=== PATIENT | male | born 1970 | race Caucasian/White ===

== ENCOUNTER 2024-04-18 13:28 | Inpatient (IN) ==
--- NOTE | 2024-04-18 14:43 | Emergency Department Note ---
History of Present Illness General Chief complaint: Hip Pain Stated complaint: L HIP PAIN Time Seen by Provider: 04/18/24 14:23 History of Present Illness Maximum Pain Intensity: 10 This is a 54-year-old male that presents to the emergency department via private vehicle with complaints of "left hip pain". The patient points to the area on the back to superior to the left ASIS as a location of discomfort. Patient notes that for the past month or so he has had some discomfort in that area but has been overall mild. He notes that a few days ago the pain significantly worsened and then yesterday started on oral muscle relaxers. He notes that the pain continues. He notes nausea from the pain. Current pain 100/10. The patient denies any trauma or injury. No fevers, chills or vomiting. No dysuria. Patient does note movements at times are worse with certain positions but walking is actually a bit helpful at least initially but then the pain worsens. The pain does not radiate into the abdomen or down the legs. Patient denies any lower extremity weakness, bowel or bladder incontinence, numbness or tingling in genital region. Patient denies any drug use. No smoking. Minimal alcohol use. Home Medications Medication Instructions Recorded Confirmed Type No Known Home Medications 04/01/24 04/01/24 History Allergies Allergy/AdvReac Type Severity Reaction Status Date / Time No Known Allergies Allergy Unknown Verified 02/13/24 15:28 Past Med/Surg History Problem List (Updated 04/18/24 @ 16:54 by Tip Jaime PA-C) Left low back pain (Acute) Encounter for pre-operative examination Medical History Radiolucent area in mandible Gum inflammation Impacted teeth with abnormal position History of COVID-19 2021 Sciatica History of sleep apnea no device Acid reflux diet controlled Surgical History Hx of oral surgery (02/05/24) p Excision Impacted Tooth #17, - Vance Jefferson DMD s Debridement of Infected Cyst/Soft Tissue - s Radiolucent Area in Mandible Associated with expansion #17 area Vance Jefferson DMD History of colonoscopy History of open reduction and internal fixation (ORIF) procedure BL KALI (subsequent right femur shaheen removal year later) History of tonsillectomy Family History Other No family history of adverse response to anesthesia Social History Smoking Status: Never smoker Second Hand Exposure: No; Do You Dip or Chew Tobacco: No; Hx Alcohol Use: Yes Alcohol type: beer, wine and hard liquor Hx Substance Use: No Preferred Language: Mosotho Communication Ability: Effective Library Aide Required: No Beliefs That Will Affect Care: None marital status: Current Living Situation: Spouse current occupational status: employed 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 How many Children do You have: 2 Feels Safe at Home: Yes during the past year weight has: remained stable Assistive Devices: Glasses Review of Systems A total of 10 systems reviewed and were otherwise negative Physical Exam Vital Signs Vital Signs - 24 hr 04/18/24 13:28 04/18/24 13:28 04/18/24 15:19 Temperature 36.6 C Temperature Source Temporal Artery Scan Pulse Rate 71 Pulse Rate [Right Finger] 62 Respiratory Rate 18 20 Respiratory Effort / Characteristics Non-Labored Spontaneous Respiratory Depth Normal Respiratory Pattern Regular Blood Pressure 151/98 H Blood Pressure [Right Arm] 147/83 H Blood Pressure Mean 115 Blood Pressure Mean [Right Arm] 104 Pulse Oximetry 99 98 98 Oxygen Delivery Method Room Air Sepsis Recent Fever Within 48 Hours No Sepsis New/Unexplained Change in Mental Status N/A Sepsis Action Taken by Nursing No Action Required 04/18/24 16:00 04/18/24 16:01 04/18/24 16:05 Temperature Temperature Source Pulse Rate 56 L 63 Pulse Rate [Right Finger] 56 L Respiratory Rate 16 16 Respiratory Effort / Characteristics Non-Labored Spontaneous Respiratory Depth Normal Respiratory Pattern Regular Blood Pressure Blood Pressure [Right Arm] 166/93 H Blood Pressure Mean Blood Pressure Mean [Right Arm] 117 Pulse Oximetry 97 96 Oxygen Delivery Method Room Air Room Air Sepsis Recent Fever Within 48 Hours Sepsis New/Unexplained Change in Mental Status Sepsis Action Taken by Nursing 04/18/24 16:32 04/18/24 16:42 Temperature Temperature Source Pulse Rate Pulse Rate [Right Finger] 68 58 L Respiratory Rate 10 L 20 Respiratory Effort / Characteristics Non-Labored Spontaneous Non-Labored Spontaneous Respiratory Depth Normal Normal Respiratory Pattern Regular Regular Blood Pressure Blood Pressure [Right Arm] 138/90 Blood Pressure Mean Blood Pressure Mean [Right Arm] 106 Pulse Oximetry 97 98 Oxygen Delivery Method Room Air Room Air Sepsis Recent Fever Within 48 Hours Sepsis New/Unexplained Change in Mental Status Sepsis Action Taken by Nursing VITAL SIGNS - Vital signs and nursing notes were reviewed. Stable and afebrile. GENERAL -54-year-old male appearing his stated age who is in no acute distress but appears to be in pain and is in a prone position on the exam bed. Communicates well with provider and answers questions appropriately. SKIN - Without rashes. No meningeal or petechial rash. The skin overlying the low back is unremarkable. No erythema or edema. No herpetic lesions. HEAD - NC/AT. EYES - Sclera anicteric. MOUTH/OROPHARYNX - Without perioral cyanosis. NECK - Neck with FROM. No nuchal rigidity. LUNGS - CTA CARDIAC - RRR ABDOMEN - Abdominal contour normal without pulsations or visible masses. BS normoactive all four quadrants. No tenderness, palpable masses, hepatosplenomegaly, or ascites noted. EXTREMITIES - No clubbing or peripheral cyanosis. +5/5 strength noted in UE/LE bilaterally. Patellar reflexes within normal limits bilaterally. Patient able to straight leg raise against resistance bilaterally. NEUROLOGIC - Cranial nerves II through XII grossly intact. PSYCH -alert, oriented and pleasant on exam. Pt is very pleasant and interacts well with examiner. Course Administered Medications Sodium Chloride (Nss) 1,000 mls @ 999 mls/hr IV .Q1H1M ONE Stop: 04/18/24 17:11 Last Admin: 04/18/24 16:30 Dose: 999 mls/hr Documented By: TOÑA Discontinued Medications Hydromorphone HCl (Hydromorphone Inj 0.5 Mg/0.5 Ml Syr) 0.5 mg IV NOW STA Stop: 04/18/24 15:54 Last Admin: 04/18/24 16:04 Dose: 0.5 mg Documented By: TOÑA Ketorolac Tromethamine (Ketorolac Tromethamine 15 Mg/Ml Vial) 10 mg IV NOW ONE Stop: 04/18/24 14:45 Last Admin: 04/18/24 15:14 Dose: 10 mg Documented By: TOÑA Ondansetron HCl (Ondansetron Inj 2 Mg/Ml 2 Ml Vial) 4 mg IV NOW STA Stop: 04/18/24 15:54 Last Admin: 04/18/24 16:03 Dose: 4 mg Documented By: TOÑA Medical Decision Making Laboratory Data 04/18/24 15:38 04/18/24 15:44 Lab Results 04/18/24 04/18/24 04/18/24 Range/Units 15:00 15:38 15:44 WBC Cancelled 7.99 RBC Cancelled 5.85 Hgb Cancelled 17.5 Hct Cancelled 51.3 MCV Cancelled 87.7 MCH Cancelled 29.9 MCHC Cancelled 34.1 RDW Std Deviation Cancelled 41.7 RDW Coeff of Cee Cancelled 13.0 Plt Count Cancelled 227 MPV Cancelled 10.0 Immature Gran % (Auto) Cancelled 1.4 Neut % (Auto) Cancelled 50.9 Lymph % (Auto) Cancelled 33.4 Rosebud % (Auto) Cancelled 11.5 Eos % (Auto) Cancelled 1.5 Baso % (Auto) Cancelled 1.3 Neut # (Auto) Cancelled 4.07 Lymph # (Auto) Cancelled 2.67 Rosebud # (Auto) Cancelled 0.92 H Eos # (Auto) Cancelled 0.12 Baso # (Auto) Cancelled 0.10 Immature Gran # (Auto) Cancelled 0.11 Absolute Nucleated RBC Cancelled Nucleated RBC % (auto) Cancelled Neutrophils % (Manual) Cancelled Band Neutrophils % Cancelled Lymphocytes % (Manual) Cancelled Prolymphocyte % Cancelled Reactive Lymphs % (Man) Cancelled Monocytes % (Manual) Cancelled Eosinophils % (Manual) Cancelled Basophils % (Manual) Cancelled Metamyelocytes % (Man) Cancelled Myelocytes % (Man) Cancelled Promyelocytes % (Man) Cancelled Blast Cells % (Manual) Cancelled Plasma Cell % (Manual) Cancelled Other Cells % Cancelled Nucleated RBC % Cancelled Neutrophils # (Manual) Cancelled Band Neutrophils # Cancelled Total Absolute Neuts Cancelled Lymphocytes # (Manual) Cancelled Prolymphocyte # Cancelled Reactive Lymphs # Cancelled Total Abs Lymphocytes Cancelled Monocytes # (Manual) Cancelled Eosinophils # (Manual) Cancelled Basophils # (Manual) Cancelled Metamyelocytes # (Man) Cancelled Myelocytes # (Manual) Cancelled Promyelocytes # (Man) Cancelled Blast Cells # (Man) Cancelled Plasma Cell # (Manual) Cancelled Other Cells # Cancelled Nucleated RBCs # (Man) Cancelled Hypersegmented Neuts Cancelled Hyposegmented Neuts Cancelled Hypogranular Neuts Cancelled Large Granular Lymphs Cancelled # Lrg Granular Lymphs Cancelled Hairy Cells Cancelled Smudge Cells Cancelled Toxic Granulation Cancelled Toxic Vacuolation Cancelled Dohle Bodies Cancelled Juve Rods Cancelled Platelet Estimate Cancelled Hypogranular Platelets Cancelled Giant Platelets Cancelled Platelet Satelliting Cancelled RBC Morphology Cancelled Polychromasia Cancelled Hypochromasia Cancelled Poikilocytosis Cancelled Basophilic Stippling Cancelled Anisocytosis Cancelled Microcytosis Cancelled Macrocytosis Cancelled Spherocytes Cancelled Pappenheimer Bodies Cancelled Sickle Cells Cancelled Target Cells Cancelled Tear Drop Cells Cancelled Ovalocytes Cancelled Stomatocytes Cancelled Jasmine-Elysian Bodies Cancelled Echinocytes Cancelled Acanthocytes (Spur) Cancelled Rouleaux Cancelled RBC Agglutinates Cancelled Schistocytes Cancelled Sezary Cell Cancelled Sodium Cancelled 143 Potassium Cancelled 3.9 Chloride Cancelled 107 Carbon Dioxide Cancelled 30 Anion Gap Cancelled 6 BUN Cancelled 16 Creatinine Cancelled 0.84 Est Cr Clr Drug Dosing Cancelled 109.2 eGFR Cancelled 102.99 BUN/Creatinine Ratio Cancelled 19.0 Glucose Cancelled 93 Calcium Cancelled 9.1 Total Bilirubin Cancelled 0.8 AST Cancelled 13 ALT Cancelled 16 Alkaline Phosphatase Cancelled 60 Total Protein Cancelled 6.4 Albumin Cancelled 3.8 Globulin Cancelled 2.6 Albumin/Globulin Ratio Cancelled 1.5 Urine Color Urine Appearance (Clear) Urine pH (4.5-7.5) Ur Specific [place] (1.000-1.030) Urine Protein (Negative) Urine Glucose (UA) (Negative) Urine Ketones (Negative) Urine Blood (Negative) Urine Nitrite (Negative) Urine Bilirubin (Negative) Urine Urobilinogen (Negative) Ur Leukocyte Esterase (Negative) Blood Parasites ID Cancelled 04/18/24 Range/Units 15:50 WBC RBC Hgb Hct MCV MCH MCHC RDW Std Deviation RDW Coeff of Cee Plt Count MPV Immature Gran % (Auto) Neut % (Auto) Lymph % (Auto) Rosebud % (Auto) Eos % (Auto) Baso % (Auto) Neut # (Auto) Lymph # (Auto) Rosebud # (Auto) Eos # (Auto) Baso # (Auto) Immature Gran # (Auto) Absolute Nucleated RBC Nucleated RBC % (auto) Neutrophils % (Manual) Band Neutrophils % Lymphocytes % (Manual) Prolymphocyte % Reactive Lymphs % (Man) Monocytes % (Manual) Eosinophils % (Manual) Basophils % (Manual) Metamyelocytes % (Man) Myelocytes % (Man) Promyelocytes % (Man) Blast Cells % (Manual) Plasma Cell % (Manual) Other Cells % Nucleated RBC % Neutrophils # (Manual) Band Neutrophils # Total Absolute Neuts Lymphocytes # (Manual) Prolymphocyte # Reactive Lymphs # Total Abs Lymphocytes Monocytes # (Manual) Eosinophils # (Manual) Basophils # (Manual) Metamyelocytes # (Man) Myelocytes # (Manual) Promyelocytes # (Man) Blast Cells # (Man) Plasma Cell # (Manual) Other Cells # Nucleated RBCs # (Man) Hypersegmented Neuts Hyposegmented Neuts Hypogranular Neuts Large Granular Lymphs # Lrg Granular Lymphs Hairy Cells Smudge Cells Toxic Granulation Toxic Vacuolation Dohle Bodies Juve Rods Platelet Estimate Hypogranular Platelets Giant Platelets Platelet Satelliting RBC Morphology Polychromasia Hypochromasia Poikilocytosis Basophilic Stippling Anisocytosis Microcytosis Macrocytosis Spherocytes Pappenheimer Bodies Sickle Cells Target Cells Tear Drop Cells Ovalocytes Stomatocytes Jasmine-Elysian Bodies Echinocytes Acanthocytes (Spur) Rouleaux RBC Agglutinates Schistocytes Sezary Cell Sodium Potassium Chloride Carbon Dioxide Anion Gap BUN Creatinine Est Cr Clr Drug Dosing eGFR BUN/Creatinine Ratio Glucose Calcium Total Bilirubin AST ALT Alkaline Phosphatase Total Protein Albumin Globulin Albumin/Globulin Ratio Urine Color Yellow Urine Appearance Clear (Clear) Urine pH 6.5 (4.5-7.5) Ur Specific [place] 1.019 (1.000-1.030) Urine Protein Negative (Negative) Urine Glucose (UA) Negative (Negative) Urine Ketones Negative (Negative) Urine Blood Negative (Negative) Urine Nitrite Negative (Negative) Urine Bilirubin Negative (Negative) Urine Urobilinogen Negative (Negative) Ur Leukocyte Esterase Negative (Negative) Blood Parasites ID MDM Narrative Patient was seen and evaluated as above in room D04a. Review was performed of triage nursing notes and vital signs. After obtaining a thorough history and physical examination the above work up was performed. Patient presents to us today for assessment of left low back pain. No trauma. No injury. It does not radiate down the legs. Patient appears to be in significant pain at this time rating current pain as 100/10. No evidence of cauda equina syndrome by history or examination. Labs reveal no leukocytosis or concerning anemia. No emergent metabolic disturbance. Urinalysis negative. Patient medicated here with IV Toradol, IV Dilaudid, IV Zofran. Patient also appears dehydrated and IV fluids also administered. CT scan abdomen pelvis plus L-spine recon was ordered. Patient case signed out to BUZZ Naik pending imaging. Patient noted current pain 1/10 following IV analgesia. Please refer to further documentation regarding his stay. While in the department, I personally reevaluated the patient several times and each time the patient was found to be resting comfortably. The patient was educated upon management, educated upon todays findings/results, educated upon importance of follow up from today's visit, educated upon symptoms in which to return, had questions answered prior to discharge, verbalized understanding, and was discharged home in good condition. GCS: 15 In the evaluation and treatment of this patient the following differential diagnoses were entertained: Fracture, dislocation, subluxation, contusion, sprain, strain, retroperitoneal bleed, kidney stone, UTI, bowel obstruction, diverticulitis, among others. Impression & Plan Left low back pain Discharge Plan Visit Data Chief Complaint: Hip Pain Stated Complaint: L HIP PAIN ED Provider: Jesus Tolliver ED Midlevel Provider: Tenisha Romero Discharge Problem: Left low back pain Patient Disposition: Still a Patient Condition: Good Forms Stand Alone Forms: My [facility] Prescriptions Prescriptions: No Action No Known Home Medications Referrals Referrals: Lew Logan [Primary Care Provider] -
[2024-04-18] MEDS: KETOROLAC TROMETHAMINE 15 MG/ML VIAL IV ONE (15:14)
[2024-04-18 16:03] LABS: Appearance Urine Clear (Clear); Bilirubin Urine Negative (Negative); Blood Urine Negative (Negative); Color Urine Yellow; Glucose Urine UA Negative (Negative); Ketones Urine Negative (Negative); Leukocyte Esterase Urine Negative (Negative); Nitrite Urine Negative (Negative); Protein Urine Negative (Negative); Specific Gravity Urine 1.019 (1.000-1.030); Urobilinogen Urine Negative (Negative); pH Urine 6.5 (4.5-7.5)
[2024-04-18] MEDS: ONDANSETRON INJ 2 MG/ML 2 ML VIAL IV STA (16:03)
[2024-04-18] MEDS: HYDROmorphone INJ 0.5 MG/0.5 ML SYR IV STA ×3 (16:04→19:11)
[2024-04-18 16:19] LABS: Basophils % (auto) 1.3 %; Eosinophils # (auto) 0.12 K/uL (0.00-0.50); Eosinophils % (auto) 1.5 %; Hematocrit (blood only) 51.3 % (42.0-52.0); Hemoglobin 17.5 g/dl (14.0-18.0); Immature Granulocytes # (auto) 0.11 K/uL (0.01-0.20); Immature Granulocytes % (auto) 1.4 %; Lymphocytes # (auto) 2.67 K/uL (1.20-3.40); Lymphocytes % (auto) 33.4 %; Mean Corpuscular Hemoglobin 29.9 pg (25.0-34.0); Mean Corpuscular Hgb Conc 34.1 g/dL (32.0-36.0); Mean Corpuscular Volume 87.7 fL (80.0-100.0); Monocytes # (auto) 0.92 K/uL (0.11-0.59); Monocytes % (auto) 11.5 %; Neutrophils # (auto) 4.07 K/uL (1.40-6.50); Neutrophils % (auto) 50.9 %; Platelet Count 227 K/uL (130-400); RDW Standard Deviation 41.7 fL (36.4-46.3); Red Blood Count 5.85 M/uL (4.70-6.10); White Blood Count 7.99 K/ul (4.8-10.8)
[2024-04-18] MEDS: SODIUM CHLORIDE 0.9% 1,000 ML IV ONE (16:30)
[2024-04-18 16:38] LABS: Albumin Globulin Ratio 1.5 (0.9-2); Albumin Level 3.8 gm/dl (3.4-5.0); Bilirubin,Total 0.8 mg/dl (0.2-1.0); Calcium 9.1 mg/dl (8.6-10.3); Creatinine Clr Calc Pharmacy 109.2 ml/min; Globulin 2.6 gm/dl (2.5-4.0); Potassium 3.9 mmol/L (3.5-5.1); Total Protein 6.4 gm/dl (6.0-8.3)
[2024-04-18] MEDS: OPTIRAY 320 100ml IV ONE (17:14)
--- NOTE | 2024-04-18 17:31 | CT Scan Report ---
EXAM: CT Abdomen and Pelvis With Intravenous Contrast INDICATION: Low back and flank pain. TECHNIQUE: Axial computed tomography images of the abdomen and pelvis with intravenous contrast. Sagittal and coronal reformatted images were created and reviewed. This CT exam was performed using one or more of the following dose reduction techniques: automated exposure control, adjustment of the mA and/or kV according to patient size, and/or use of iterative reconstruction technique. CONTRAST: 93ml of Optiray 320 was administered intravenously. COMPARISON: No relevant prior studies available. FINDINGS: Limitations: None. Lung bases: No abnormality noted. Pleural space: No visualized pleural effusion or pneumothorax. Heart: Mild cardiomegaly. No basilar pericardial effusion. Mediastinum: No abnormality noted. ABDOMEN: Liver: No abnormality noted. Gallbladder and bile ducts: No calcified stones or surrounding fluid. Pancreas: Homogeneous enhancement. No mass, inflammation or ductal dilation. Spleen: No significant abnormality noted. Adrenals: 1.8 x 1.3 x 0.9 cm low-density right adrenal nodule. Density measurements slightly greater than expected for adenoma. There is a 5 mm round hypodense nodule in the lateral limb of the left adrenal gland. It is too small to characterize likely benign. Kidneys and ureters: Tiny hypodensity in the lower pole of the left kidney too small to characterize likely cyst. Appearance benign. No further assessment required. The kidneys otherwise appear normal. No stones or hydronephrosis. Stomach and bowel: Scattered left colonic diverticula noted. No diverticulitis. No intestinal obstruction. No segmental thickening. PELVIS: Appendix: Well seen and appears normal. Bladder: No filling defects to suggest mass or large stone. No inflammation. Reproductive: No abnormalities noted. ABDOMEN and PELVIS: Intraperitoneal space: No free air. No significant fluid collection. Bones/joints: Degenerative changes noted throughout the spine. No acute osseous abnormality seen. Degenerative changes present in the spine. No acute osseous abnormality. Soft tissues: There is a right paramedian supraumbilical fat-containing hernia with a 7 mm neck. Vasculature: Mild atherosclerotic plaque in the aorta and iliac arteries. No aneurysm or dissection. Lymph nodes: No pathologically enlarged lymph nodes. IMPRESSION: 1. No acute abnormality in the abdomen or pelvis. 2. Indeterminant right adrenal nodule measures up to 1.8 cm. 5 mm left adrenal low-density nodule likely adenoma. In the absence of the prior study to document stability, ACR White Paper guidelines (Evangelina et al. JACR 2017; 14(8):3093-9833) suggest the following. If there is no history of malignancy consider a follow-up low dose, non-contrast adrenal CT or chemical-shift adrenal MRI in 12 months. If there is a history of malignancy recommend a low dose, non-emergent, non-contrast adrenal CT or chemical-shift adrenal MRI follow-up study. 3. Degenerative lumbar disc disease. See separately dictated CT lumbar spine report from the same day. ACT 112: Negative or not required by law. Electronically signed by Claire Cedeño 04-18-2024 5:31 PM
--- NOTE | 2024-04-18 17:37 | CT Scan Report ---
EXAM: CT Lumbar Spine With Intravenous Contrast INDICATION: Low back and flank pain. TECHNIQUE: Axial computed tomography images of the lumbar spine with intravenous contrast. Sagittal and coronal reformatted images were created and reviewed. This CT exam was performed using one or more of the following dose reduction techniques: automated exposure control, adjustment of the mA and/or kV according to patient size, and/or use of iterative reconstruction technique. CONTRAST: 93ml of Optiray 320 was administered intravenously. COMPARISON: 01/21/2022 FINDINGS: Limitations: None. Vertebrae: Mild diffuse facet arthrosis and spondylosis is stable. There is disc space narrowing L1-L2 with no change asymmetric left osteophyte disc complex and mild canal stenosis. There is narrowing of the left foraminal orifice at this level. There is increased diffuse moderate disc bulge and stable mild canal stenosis at L2-L3. Stable asymmetric right lateral disc bulging at L3-L4 abutting the exiting right L4 nerve root. Stable diffuse disc bulge with moderate to severe canal stenosis at L4-L5 with subarticular nerve root impingement bilaterally. Sacrum/coccyx: No significant abnormality noted. No acute change noted. Discs/spinal canal/neural foramina: Worsening far lateral right disc bulge and interval ossification L5-S1 with severe right foraminal stenosis. Soft tissues: No significant abnormality noted. Adrenals: Bilateral adrenal nodules. IMPRESSION: 1. No acute osseous abnormality. 2. Worsening right lateral L5-S1 disc herniation and right foraminal stenosis compared to 2021. 3. Increased diffuse disc bulge with mild canal stenosis L2-L3 compared to 2021. 4. Bilateral adrenal nodules. See separately dictated CT abdomen pelvic report from the same day. ACT 112: Negative or not required by law. Electronically signed by Claire Cedeño 04-18-2024 5:36 PM
--- NOTE | 2024-04-18 18:42 | Emergency Department Note ---
ED Visit Note The patient was signed out to me at change of shift from Tip Coffman PA-C, pending CT imaging of the abdomen and pelvis as well as the lumbar spine. CT imaging of the abdomen and pelvis does show bilateral adrenal nodules, indeterminate which will require further workup to rule out malignancy. Lumbar spine shows worsening right lateral L5-S1 disc herniation and right foraminal stenosis compared to 2022. There is also increased diffuse disc bulge with mild canal stenosis L2-L3 compared to 2022. I spoke with the patient and his at bedside regarding findings. They were agreeable to admission. I spoke with Dr. Sanchez regarding the patient's results, he agreed to consult during the patient's hospital admission for pain control and ambulatory dysfunction. The patient will require MRI imaging that will be obtained during his hospital admission of the lumbar spine. I spoke with Dr. Ferro, from the [facility] hospitalist group. We discussed the findings of the nodules on the adrenal glands, as well as the findings of the lumbar spine CT. He agreed to accept the patient for admission, with Dr. Sanchez's consult. Please refer to Dr. Ferro and Dr. Sanchez's documentation for further patient workup and care. .
--- NOTE | 2024-04-18 19:16 | History & Physical Report ---
Date of Service April 18, 2024 Assessment & Plan (1) Herniation of intervertebral disc between L5 and S1: (2) Neural foraminal stenosis of lumbosacral spine: (3) Adrenal nodule: Plan Patient with intractable left sided lumbar/hip pain most likely due to foraminal stenosis of the L5-S1 herniated disc. Patient requires hospital level care for pain control and specialty consultation and additional imaging. Care for in the MedSurg unit. Scheduled Tylenol, Flexeril, Neurontin for pain control As needed oxycodone and IV Dilaudid for pain control MRI of the lumbar spine Orthospine consultation, Dr. Sanchez Will hold on any additional steroids at this time. Patient did not seem to find relief with steroid bort burst as an outpatient, his orthopedic spine surgery and told him to discontinue the steroids that he had been on. Therapy consultation Patient will need outpatient follow-up imaging of adrenal nodules, can be followed through his PCP N.p.o. after midnight in case need for surgical intervention tomorrow History of Present Illness Chief Complaint: Severe left hip pain Primary Care Provider: Lew Logan Patient is a 54-year-old gentleman with known bulging disks in the lumbar spine. About 2 weeks ago started noticing increased amount of pain in the left hip. Describes a sharp throbbing intractable pain. Patient is already follows with Dr. Sanchez. Tried a Medrol Dosepak that did not seem to offer him much relief. Patient followed up with his PCP earlier this week and started another burst of steroids. He got no relief with this. Dr. Sanchez trialed him on some Flexeril. Flexeril did not seem to help much at all either. The pain in the hip really exacerbated on . He tried to work on Saturday and the pain just got excruciating to the point where he sought attention in the emergency room today. In the emergency room CT of the lumbar spine shows increased evidence of L5-S1 disc herniation with right foraminal stenosis. These findings were discussed with Dr. Sanchez in the emergency room. It was recommended the patient be admitted for pain control and further imaging and possible surgical intervention. Time of my evaluation the patient's pain had been in had improved with Dilaudid. He reports that his pain is really in the left hip despite findings of more significant stenosis on the right on imaging. Also on imaging of the abdomen in the ED showed some indeterminate right adrenal nodules that based on their size recommend follow-up imaging within the next 12 months. Otherwise the patient denies any real significant medical history. Been eating and drinking okay. Bowels and bladder have been working normally. No chest pain or shortness of breath. No fevers or cough or cold symptoms. Allergies Allergy/AdvReac Type Severity Reaction Status Date / Time No Known Allergies Allergy Unknown Verified 02/13/24 15:28 Home Medications Medication Instructions Recorded Confirmed Type cyclobenzaprine 10 mg tablet 10 mg PO UD 04/18/24 04/18/24 History Past Med/Surg History Problem List (Updated 04/18/24 @ 19:15 by Rober Morelos DO) Adrenal nodule Neural foraminal stenosis of lumbosacral spine Herniation of intervertebral disc between L5 and S1 Left low back pain (Acute) Encounter for pre-operative examination Medical History Radiolucent area in mandible Gum inflammation Impacted teeth with abnormal position History of COVID-19 2021 Sciatica History of sleep apnea no device Acid reflux diet controlled Surgical History Hx of oral surgery (02/05/24) p Excision Impacted Tooth #17, - Vance Jefferson DMD s Debridement of Infected Cyst/Soft Tissue - s Radiolucent Area in Mandible Associated with expansion #17 area Vance Jefferson DMD History of colonoscopy History of open reduction and internal fixation (ORIF) procedure BL LE (subsequent right femur shaheen removal year later) History of tonsillectomy Family History Other No family history of adverse response to anesthesia Social History Smoking Status: Never smoker Second Hand Exposure: No; Do You Dip or Chew Tobacco: No; Hx Alcohol Use: Yes Alcohol type: beer, wine and hard liquor Hx Substance Use: No Preferred Language: Luxembourgish Communication Ability: Effective Heel Seat Sander Required: No Beliefs That Will Affect Care: None marital status: Current Living Situation: Spouse current occupational status: employed 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 Sclera clear Neck: Soft, no adenopathy Lungs: Clear to auscultation, decreased, no wheezes rales or rhonchi CV: S1-S2, regular Abdomen: Soft, nontender, nondistended Extremities: No significant edema Musculoskeletal: Unable to reproduce significant tenderness to palpation along his left hip, some lumbar paravertebral musculature bogginess and tenderness, Neuro: No focal deficits, negative straight leg raising, strength in lower extremity intact, sensation intact Psych: Cooperative, normal mood Results & Data Results & Data Vital Signs (Past 12 Hours) Vital Signs Temp Pulse Pulse Resp BP BP Pulse Ox 04/18/24 18:30 67 12 97 04/18/24 18:24 57 L 8 L 97 04/18/24 18:12 58 L 13 97 04/18/24 18:00 66 13 97 04/18/24 17:42 54 L 8 L 99 04/18/24 17:33 61 6 L 94 04/18/24 17:25 62 20 151/94 H 99 04/18/24 17:23 151/94 H 04/18/24 17:23 151/94 H 04/18/24 16:42 58 L 20 98 04/18/24 16:36 61 23 98 04/18/24 16:32 68 10 L 138/90 97 04/18/24 16:29 138/90 04/18/24 16:18 55 L 9 L 94 04/18/24 16:06 61 14 98 04/18/24 16:05 63 04/18/24 16:01 166/93 H 04/18/24 16:01 56 L 16 166/93 H 96 04/18/24 16:00 56 L 16 97 04/18/24 15:19 62 20 147/83 H 98 04/18/24 13:28 98 04/18/24 13:28 36.6 C 71 18 151/98 H 99 O2 Del Method 04/18/24 18:30 04/18/24 18:24 04/18/24 18:12 04/18/24 18:00 04/18/24 17:42 04/18/24 17:33 04/18/24 17:25 Room Air 04/18/24 17:23 04/18/24 17:23 04/18/24 16:42 Room Air 04/18/24 16:36 04/18/24 16:32 Room Air 04/18/24 16:29 04/18/24 16:18 04/18/24 16:06 04/18/24 16:05 04/18/24 16:01 04/18/24 16:01 Room Air 04/18/24 16:00 Room Air 04/18/24 15:19 Room Air 04/18/24 13:28 04/18/24 13:28 Diagnostic Findings Reviewed imaging, laboratory and diagnostic studies. Pertinent findings as below. CT of the abdomen pelvis report reviewed, indeterminant adrenal nodule CT lumbar spine reviewed, increasing herniation L5-S1 disc with foraminal stenosis on the right Urinalysis unremarkable Basic metabolic profile, LFTs within normal range CBC within normal range
[2024-04-18] MEDS ORDERED: oxyCODONE HCL IR 5 MG TAB (IMMEDIATE RELEASE) PO PRN (21:56)
[2024-04-18] MEDS ORDERED: MAGNESIUM HYDROXIDE SUSP 30 ML UDC PO PRN (21:56)
[2024-04-18] MEDS: CYCLOBENZAPRINE HCL 10 MG TAB PO SCH (22:30)
[2024-04-18] MEDS: GABAPENTIN 100 MG CAP PO SCH (22:30)
--- NOTE | 2024-04-19 10:50 | Orthopedic Consultation ---
Date of Consultation April 19, 2024 Assessment & Plan (1) Neural foraminal stenosis of lumbosacral spine: Assessment lumbar spinal stenosis with neuroforaminal stenosis. Plan I discussion today with the patient and his who is at the bedside. The CAT scan does demonstrate neuroforaminal disease at the L4-L5 L5 1 level. I have concerns that this is the beginnings of a radiculopathy. Will know more after his MRI is complete. I may consider consultation with interventional pain management for diagnostic therapeutic transforaminal block. He understands agrees with this plan. Will have him initiate a diet. History of Present Illness Reason for Consultation: Severe left-sided lumbosacral back pain Attending Physician: Shubham Maier MD History of Present Illness This is a 54-year-old male who presents to hospital yesterday with significant decline in status due to pain involving lumbosacral junction on the left. This has been going on for several days and progressive in nature. Denies any specific trauma fall or event. He denies pain radiating down into the legs. Denies any numbness and tingling in the legs. The pain is favoring the left side and the left upper buttock. Patient's pain is much improved this morning after his pain medication. Allergies Allergy/AdvReac Type Severity Reaction Status Date / Time No Known Allergies Allergy Unknown Verified 02/13/24 15:28 Home Medications Medication Instructions Recorded Confirmed Type cyclobenzaprine 10 mg tablet 10 mg PO UD 04/18/24 04/18/24 History Patient History Medical History Radiolucent area in mandible Gum inflammation Impacted teeth with abnormal position History of COVID-19 2021 Sciatica History of sleep apnea no device Acid reflux diet controlled Surgical History Hx of oral surgery (02/05/24) p Excision Impacted Tooth #17, - Vance Jefferson DMD s Debridement of Infected Cyst/Soft Tissue - s Radiolucent Area in Mandible Associated with expansion #17 area Vance Jefferson DMD History of colonoscopy History of open reduction and internal fixation (ORIF) procedure BL LE (subsequent right femur shaheen removal year later) History of tonsillectomy Family History Other No family history of adverse response to anesthesia Social History Smoking Status: Never smoker Second Hand Exposure: No; Do You Dip or Chew Tobacco: No; Hx Alcohol Use: Yes Alcohol type: beer, wine and hard liquor Hx Substance Use: No Preferred Language: [place] Communication Ability: Effective Medical Laboratory Manager Required: No Beliefs That Will Affect Care: None marital status: Current Living Situation: Spouse current occupational status: employed 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 He has good strength testing lower extremities. I am unable to reproduce any pain with direct palpation over the bilateral SI joints or upper gluteal musculature. There is no pain palpation of the paravertebral musculature. Results & Data Vital Signs (Past 12 Hours) Vital Signs Temp Pulse Resp BP Pulse Ox O2 Del Method 04/19/24 07:15 36.9 C 80 16 108/68 95 Room Air
[2024-04-19] MEDS: HYDROmorphone INJ 0.5 MG/0.5 ML SYR IV PRN (11:55)
--- NOTE | 2024-04-19 14:25 | Hospitalist Progress Note ---
Date of Service April 19, 2024 Assessment & Plan (1) Herniation of intervertebral disc between L5 and S1: (2) Neural foraminal stenosis of lumbosacral spine: (3) Adrenal nodule: Plan per admitting service notes with addendum: Patient with intractable left sided lumbar/hip pain most likely due to foraminal stenosis of the L5-S1 herniated disc. Patient requires hospital level care for pain control and specialty consultation and additional imaging. Care for in the MedSurg unit. Scheduled Tylenol, Flexeril, Neurontin for pain control As needed oxycodone and IV Dilaudid for pain control MRI of the lumbar spine Orthospine consultation, Dr. Sanchez Will hold on any additional steroids at this time. Patient did not seem to find relief with steroid bort burst as an outpatient, his orthopedic spine surgery and told him to discontinue the steroids that he had been on. Therapy consultation 04/19 Dr. Sanchez evaluated the patient today Lumbar spine MRI ordered continue Gabapentin trial, Flexeril no other symptoms Patient will need outpatient follow-up imaging of adrenal nodules, can be followed through his PCP. plan of care discussed with patient and his family in detail and at length all questions answered they are understanding, agreeable, comfortable with the plan of care Admission and Anticipated Discharge Date Admission Date: April 18, 2024 Subjective ff up for lumbar radiculopathy, etc seen resting in bed, sitting up states he feels a little bit better than yesterday still has L lower back pain though no leg weakness/numbness no other symptoms Review of Systems Review of Systems: all noted and negative except for above Physical Exam Physical Exam: General- oriented x 3, not in distress, speaks in sentences with no effort or accessory muscle use Eyes- anicteric Neck- no JVD Lungs- clear breath sounds bilaterally, no rales/wheezes Heart- normal rate, regular rhythm; no murmurs Abdomen- normal bowel sounds, nondistended, soft, nontender Extremities- no pretibial edema, no calf tenderness Back- no erythema/warmth, mild lower back tenderness Neuro- alert, oriented x 3; no gross focal neurologic deficits Skin- warm & dry Results & Data Results & Data Vital Signs (Past 12 Hours) Vital Signs Temp Pulse Resp BP Pulse Ox O2 Del Method 04/19/24 07:15 36.9 C 80 16 108/68 95 Room Air all noted and reviewed including below
[2024-04-19] MEDS: GADOBUTROL 65ML VIAL IV ONE (16:07)
--- NOTE | 2024-04-19 16:51 | Magnetic Resonance Report ---
MRI OF THE LUMBAR SPINE WITHOUT /WITH IV CONTRAST CLINICAL HISTORY: Pain, lumbar surgery, no history of cancer COMPARISON: CT 04/18/2024 TECHNIQUE: MRI of the lumbar spine was performed utilizing various T1 and T2-weighted sequences in the axial and sagittal planes. IV contrast was administered for this examination. FINDINGS: Lumbar spine: Lordotic straightening present. Vertebral bodies are well-formed with no compression fracture. Mild endplate edema present at L1, inferior endplate. Intervertebral discs: Diminished height. Spinal cord and central canal: The conus terminates at T12-L1 appropriately. L1-L2 and L2-L3: A very mild diffuse disc bulge is noted with no focal disc extrusion, spinal stenosis or nerve root impingement. L3-L4: A mild broad-based diffuse disc bulge is present with mild facet hypertrophic changes. No focal disc extrusion, neuroforaminal stenosis or exiting nerve root impingement. No spinal stenosis. L4-L5: A large broad-based diffuse disc bulge is present with moderate facet hypertrophic changes, fluid in the synovial joints and moderate ligamentum flavum hypertrophy. Mild central spinal stenosis is present. No focal disc extrusion or nerve root impingement. L5-S1: A moderate diffuse disc bulge is present, right greater than left. Moderate facet hypertrophic changes present. No spinal stenosis or nerve root impingement. Sacrum: No edema. Soft tissues: Gadolinium enhanced images demonstrate no enhancing mass or fluid collection. Muscle bulk is normal. IMPRESSION: 1. Degenerative changes are noted above, most pronounced at L4-L5 with mild central spinal stenosis. 2. No focal disc extrusion or exiting nerve root impingement. Electronically signed by Fidelia Nathan 04-19-2024 4:50 PM
--- NOTE | 2024-04-20 10:02 | Orthopedic Progress Note ---
Date of Service April 20, 2024 Assessment & Plan (1) Neural foraminal stenosis of lumbosacral spine: Plan: At this time having reviewed the CAT scan and MRI findings of his lumbar spine I am suspicious of the L4-L5 level. He has evidence of facet hypertrophy and beginnings of neuroforaminal disease. Will consult interventional pain management for their input and treatment plan. Admission and Anticipated Discharge Date Admission Date: April 19, 2024 Subjective Patient still having severe left lumbosacral back pain. Does not radiate into the buttock or lower extremity. He is requiring Dilaudid to control his symptoms. He is able to stand and ambulate. Denies any weakness numbness or tingling into the legs. Physical Exam Physical Exam: On exam he is able to get out of bed without difficulty. He is able to forward flex comfortably. Lumbar extension reproduces pain to this region. Again with palpation of the SI joint paravertebral musculature and upper gluteal musculature I am unable to elicit discomfort. Results & Data Vital Signs (Past 12 Hours) Vital Signs Temp Pulse Resp BP Pulse Ox O2 Del Method 04/20/24 07:28 36.9 C 70 16 122/83 93 Room Air
--- NOTE | 2024-04-20 11:11 | Pain Management Consultation ---
Date of Consultation April 20, 2024 Assessment & Plan (1) Left low back pain: Chronicity: acute Sciatica presence: without sciatica Qualified Code(s): M54.50 - Low back pain, unspecified (2) Lumbar facet joint syndrome: (3) Herniation of intervertebral disc between L5 and S1: (4) Neural foraminal stenosis of lumbosacral spine: Plan 1. We discussed his MRI results in detail and discussed the likely etiology of his pain being lumbar facet syndrome. Will plan for a left L5-S1 intra- articular facet plus minus left L4-5 intra-articular facet with levels to be determined by fluoroscopy. We discussed the risk, benefits, expectations and he agrees to proceed. Consent was signed and witnessed. This will be tentatively planned for today. 2. Recommend increasing gabapentin to 300 mg p.o. 3 times daily. Orders written. 3. Agree with PT while inpatient and planned outpatient course of formal physical therapy upon discharge. 4. Encouraged oral pain control medications rather than IV in preparation for discharge. 5. Will plan to see him as an outpatient postdischarge at the [facility] pain management office. 6. Thank you for this consultation. History of Present Illness Attending Physician: Rober Morelos DO History of Present Illness 54-year-old male with a previous history of right L5 and S1 radicular symptoms notes approximately 2 weeks ago he started having a new type of pain. He reports that without any incited by event he started having 6-10 out of 10 currently 6 out of 10 sharp stabbing throbbing intractable pain over his left lumbosacral junction without any significant radiation. He reports Dr. Sanchez provided him with a Medrol Dosepak that did not offer relief and then followed up with his PCP who provided a second course of oral steroids without relief. As an outpatient he utilized Flexeril but felt exacerbation of his pain on . He subsequently presented to the [facility] emergency room on Saturday04/17/24 with intractable pain. During his hospital course he has utilized cyclobenzaprine, IV hydromorphone, oxycodone with modest benefit. He reports moderate difficulty sleeping with this pain. He denies bowel or bladder incontinence, motor weakness, foot drop, fever, chills, night sweats, saddle anesthesia. He has not previously had any interventional pain management for this pain. He reports he is able to walk to the restroom if needed but has some difficulty after standing for a period of time. Pain management was consulted for possible interventional procedure. Pain Assessment Full Body Front + Back: 2 1. [facility] Combined Pain Scale: 6-Mod to Severe - Significant limitations of ADLs. Hard to do anything Allergies Allergy/AdvReac Type Severity Reaction Status Date / Time No Known Allergies Allergy Unknown Verified 02/13/24 15:28 Home Medications Medication Instructions Recorded Confirmed Type cyclobenzaprine 10 mg tablet 10 mg PO UD 04/18/24 04/18/24 History Patient History Medical History Radiolucent area in mandible Gum inflammation Impacted teeth with abnormal position History of COVID-19 2021 Sciatica History of sleep apnea no device Acid reflux diet controlled Surgical History Hx of oral surgery (02/05/24) p Excision Impacted Tooth #17, - Vance Jefferson DMD s Debridement of Infected Cyst/Soft Tissue - s Radiolucent Area in Mandible Associated with expansion #17 area Vance Jefferson DMD History of colonoscopy History of open reduction and internal fixation (ORIF) procedure BL LE (subsequent right femur shaheen removal year later) History of tonsillectomy Family History Other No family history of adverse response to anesthesia Social History Smoking Status: Never smoker Second Hand Exposure: No; Do You Dip or Chew Tobacco: No; Hx Alcohol Use: Yes Alcohol type: beer, wine and hard liquor Hx Substance Use: No Preferred Language: Tunisian Communication Ability: Effective Sugar Refiner Required: No Beliefs That Will Affect Care: None marital status: Current Living Situation: Spouse current occupational status: employed 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 Accompanied by his on today's examination. Psych: Awake, alert, and oriented 3 with normal affect and mood. Recent memory appears grossly intact Eyes: Pupils are equally round and reactive to light with normal size pupils, eyelids appear normal Ear, nose, mouth, and throat: Moist nasal and oral membranes, lips and tongues appear normal, no external ear abnormalities are noted Neck: The trachea is midline without deviation Respiratory: Normal respiratory effort without distress, no audible wheezes or rhonchi CV: Normal S1 and S2, warm distal extremities with 2+ dorsalis pedis pulses. Chest: Deferred Musculoskeletal: Head is normocephalic and atraumatic, gait not observed the patient is able to move from a supine to a seated position within his hospital bed Cervical: Lordotic curve: Normal Range of motion is normal with extension, flexion, side-bending, rotation Strength: Strength is grossly equal bilaterally with 5 out of 5 strength in all planes Sensation of upper extremities: Intact bilaterally Thoracic: Kyphotic curve: Normal Range of motion is normal with extension, flexion, side-bending, rotation Lumbar: Lordotic curve: Slight loss of lumbar lordosis Range of motion is decreased with extension, side-bending, rotation secondary to pain, flexion acceptable. Tenderness: Exquisitely tender over the axial midline at the left L5-S1 greater than left L4-5 intra-articular facets. Nontender over the right. Facet provocation: Positive on the left negative on the right Straight leg raise: Negative bilaterally not worse with Achilles stretch Step-off injuries: None Strength: Strength is equal bilaterally with 5 out of 5 strength in all planes Sensation of lower extremities: Intact bilaterally Deep tendon reflexes: Rated at 2+ in bilateral L4 and S1 Myofascial spasm: Mild to moderate left lumbar paraspinal spasm. A few scattered discrete trigger points noted Greater trochanters: Nontender bilaterally Sacroiliac joints: Nontender bilaterally Pathologic reflexes noted: None Skin: No rashes, lesions, ulcers, or induration noted Neuro: No nystagmus noted, the tongue is midline, the patient is able to rotate their head bilaterally : Deferred Results (Pain Clinic) Diagnostic Review MRI: enhanced, non enhanced, reports reviewed, images reviewed and findings discussed with patient MRI Findings: 04/19/24 MRI OF THE LUMBAR SPINE WITHOUT /WITH IV CONTRAST CLINICAL HISTORY: Pain, lumbar surgery, no history of cancer COMPARISON: CT 04/18/2024 TECHNIQUE: MRI of the lumbar spine was performed utilizing various T1 and T2-weighted sequences in the axial and sagittal planes. IV contrast was administered for this examination. FINDINGS: Lumbar spine: Lordotic straightening present. Vertebral bodies are well-formed with no compression fracture. Mild endplate edema present at L1, inferior endplate. Intervertebral discs: Diminished height. Spinal cord and central canal: The conus terminates at T12-L1 appropriately. L1-L2 and L2-L3: A very mild diffuse disc bulge is noted with no focal disc extrusion, spinal stenosis or nerve root impingement. L3-L4: A mild broad-based diffuse disc bulge is present with mild facet hypertrophic changes. No focal disc extrusion, neuroforaminal stenosis or exiting nerve root impingement. No spinal stenosis. L4-L5: A large broad-based diffuse disc bulge is present with moderate facet hypertrophic changes, fluid in the synovial joints and moderate ligamentum flavum hypertrophy. Mild central spinal stenosis is present. No focal disc extrusion or nerve root impingement. L5-S1: A moderate diffuse disc bulge is present, right greater than left. Moderate facet hypertrophic changes present. No spinal stenosis or nerve root impingement. Sacrum: No edema. Soft tissues: Gadolinium enhanced images demonstrate no enhancing mass or fluid collection. Muscle bulk is normal. IMPRESSION: 1. Degenerative changes are noted above, most pronounced at L4-L5 with mild central spinal stenosis. 2. No focal disc extrusion or exiting nerve root impingement. CT: enhanced, non enhanced, reports reviewed and findings discussed with patient CT Findings: 04/18/24 EXAM: CT Lumbar Spine With Intravenous Contrast INDICATION: Low back and flank pain. TECHNIQUE: Axial computed tomography images of the lumbar spine with intravenous contrast. Sagittal and coronal reformatted images were created and reviewed. This CT exam was performed using one or more of the following dose reduction techniques: automated exposure control, adjustment of the mA and/or kV according to patient size, and/or use of iterative reconstruction technique. CONTRAST: 93ml of Optiray 320 was administered intravenously. COMPARISON: 01/21/2022 FINDINGS: Limitations: None. Vertebrae: Mild diffuse facet arthrosis and spondylosis is stable. There is disc space narrowing L1-L2 with no change asymmetric left osteophyte disc complex and mild canal stenosis. There is narrowing of the left foraminal orifice at this level. There is increased diffuse moderate disc bulge and stable mild canal stenosis at L2-L3. Stable asymmetric right lateral disc bulging at L3-L4 abutting the exiting right L4 nerve root. Stable diffuse disc bulge with moderate to severe canal stenosis at L4-L5 with subarticular nerve root impingement bilaterally. Sacrum/coccyx: No significant abnormality noted. No acute change noted. Discs/spinal canal/neural foramina: Worsening far lateral right disc bulge and interval ossification L5-S1 with severe right foraminal stenosis. Soft tissues: No significant abnormality noted. Adrenals: Bilateral adrenal nodules. IMPRESSION: 1. No acute osseous abnormality. 2. Worsening right lateral L5-S1 disc herniation and right foraminal stenosis compared to 2021. 3. Increased diffuse disc bulge with mild canal stenosis L2-L3 compared to 202. 4. Bilateral adrenal nodules. See separately dictated CT abdomen pelvic report from the same day.
[2024-04-20] MEDS: GABAPENTIN 300 MG CAP PO SCH (14:03)
[2024-04-20] MEDS ORDERED: ROPIVACAINE 0.5% 5 MG/ML 30 ML VIAL ONE (14:27)
[2024-04-20] MEDS ORDERED: LIDOCAINE 2% 2 ML VIAL/AMP(20MG/ML) INFIL ONE (14:27)
[2024-04-20] MEDS: LIDOCAINE 2% 2 ML VIAL/AMP(20MG/ML) INFIL ONE (15:10)
[2024-04-20] MEDS: TRIAMCINOLONE ACET 40 MG/ML VIAL ONE (15:10)
[2024-04-20] MEDS: ROPIVACAINE 0.5% 5 MG/ML 30 ML VIAL INFIL ONE (15:10)
[2024-04-20] MEDS: IOPAMIDOL INJ 61% 15 ML VIAL INJ ONE (15:10)
--- NOTE | 2024-04-20 15:20 | Operative Report ---
Post Operative Report Pre & Post Diagnosis Operation Date: 04/20/24 10:40 Pre-Op Diagnosis: Left low back pain, Lumbar facet joint syndrome, Herniation of intervertebral disc between L5 and S1, Neural foraminal stenosis of lumbosacral spine Post-Op Diagnosis: Left low back pain, Lumbar facet joint syndrome, Herniation of intervertebral disc between L5 and S1, Neural foraminal stenosis of lumbosacral spine I identified the patient and participated in the time-out.: Yes Procedure Operation Date: 04/20/24 10:40 Actual Procedures p Left L4-L5 and L5-S1 Intraarticular Lumbar Facet Injection under Fluoroscpy(Left) - Magaly Disla DO Surgeon Magaly Disla DO Marine Engine Mechanic none Estimated Blood Loss 0 Findings Consistent with Post-Op Diagnosis Fluids none Specimens none Drains none Anesthesia Type Local Disposition Accompanied Patient To Recovery: Yes Disposition: Recovery Room Indications Left low back pain, Lumbar facet joint syndrome, Herniation of intervertebral disc between L5 and S1, Neural foraminal stenosis of lumbosacral spine Description of Procedure INTRA-ARTICULAR LUMBAR FACET JOINT INJECTION Diagnosis: Lumbar Facet Syndrome and Lumbago Level injected: Left L4-5 and Left L5-S1 Surgeon: Dr. Magaly Disla Anesthesia: local Medications used: 2% lidocaine 6 mL Kenalog 40 mg/mL 2 mL 0.5% Ropivacaine 1 mL Isovue-300 2 mL Prior to starting, the Patients diagnosis, allergies, medication list, and the procedure were reviewed with the patient in detail. Potential risks including infection, bleeding, nerve injury, reaction to any one of the medications used for the procedure, persistent pain at the injection site and persistent symptoms discussed with the patient. Diagnostic and therapeutic nature of the procedure also discussed with the patient. Alternatives to the specific procedure was also discussed with the patient. Patient's questions were answered. Patient gives informed consent to proceed. The patient was brought to the operating room and placed in prone position on the table. Immediately prior to starting the procedure, a time out was conducted with the staff and the patient where the Patient was identified, proposed procedure was verified, consent was reviewed and the proper site for the planned procedure was identified. Fluoroscopy was utilized in performing the procedure to assist in placement of the needle, to evaluate the final position on the needle prior to injection and to avoid intravascular injection. Monitors used included intermittent blood pressure with an automated device, continuous pulse oximetry and level of consciousness. Patient was not given any intravenous sedation and constant verbal contact was maintained throughout the procedure. The lumbosacral spine area was prepped with duraprep and Betadine solution. After the application three minutes time elapsed prior to the start of the procedure to reduce risk of fire. Sterile drapes were applied. The above interspaces were identified in A-P view then the C-arm was then angled to obtain an oblique view to optimally visualize the facet joint space. The fluoroscope was then adjusted so that the posterior joint space was barely visible. A 22 Gauge 3.5 inch curved (15 degrees) Quincke point spinal needle was inserted through the skin and subcutaneous tissues, after local anesthetic infiltration, and advanced in a co-axial manner to the fluoroscope beam. The needle was advanced and adjusted until the tip was in the joint space. Upon entering the joint space, patient did not experience pain or paresthesia. 6 inch micro bore tubing was attached to the needle and aspiration demonstrated no blood or CSF. Needle position was verified in AP and lateral view. Next, 0.2 cc of Isovue 300 contrast was injected. It was noted to be in the joint space. No vascular uptake was noted. 40 mg of Triamcinalone acetonide and 0.5cc of 0.5% ropivacaine-MPF was gradually injected via the needle. Patient did not experience any pain, paresthesia or discomfort throughout the injection period. Needle was flushed and withdrawn. The same procedure was repeated at the additional site. Adequate hemostasis was noted. A sterile Band-Aid was applied at the injection site. Patient was taken to the recovery room in stable condition. Post procedure instructions were reviewed with the Patient. Any specific questions were answered. Emergency phone numbers and contact information was relayed. Patient voiced understanding of the instructions. Follow-up appointment will be scheduled. I attest to the content of the Intraoperative Record and any orders documented therein. Any exceptions are noted below.
[2024-04-20] MEDS: ACETAMINOPHEN 500 MG TAB PO PRN (17:53)
--- NOTE | 2024-04-20 19:06 | Hospitalist Progress Note ---
Date of Service April 20, 2024 Assessment & Plan (1) Herniation of intervertebral disc between L5 and S1: (2) Neural foraminal stenosis of lumbosacral spine: (3) Adrenal nodule: Plan per admitting service notes with addendum: Patient with intractable left sided lumbar/hip pain most likely due to foraminal stenosis of the L5-S1 herniated disc. Patient requires hospital level care for pain control and specialty consultation and additional imaging. Care for in the MedSurg unit. Scheduled Tylenol, Flexeril, Neurontin for pain control As needed oxycodone and IV Dilaudid for pain control MRI of the lumbar spine [facility] consultation, Dr. Sanchez Will hold on any additional steroids at this time. Patient did not seem to find relief with steroid bort burst as an outpatient, his orthopedic spine surgery and told him to discontinue the steroids that he had been on. Therapy consultation 04/19 Dr. Sanchez evaluated the patient today Lumbar spine MRI ordered continue Gabapentin trial, Flexeril no other symptoms 04/20 s/p Left L4-L5 and L5-S1 Intraarticular Lumbar Facet Injection under Fluoroscpy(Left) - Magaly Disla, DO continue Gabapentin trial, Flexeril no other symptoms Adrenal Nodules incidental finding on CT abdomen/pelvis: Indeterminant right adrenal nodule measures up to 1.8 cm. 5 mm left adrenal low-density nodule likely adenoma. In the absence of the prior study to document stability, ACR White Paper guidelines (Evangelina et al. JACR 2017; 14(8):7627-0514) suggest the following. If there is no history of malignancy consider a follow-up low dose, non-contrast adrenal CT or chemical-shift adrenal MRI in 12 months. If there is a history of malignancy recommend a low dose, non-emergent, non-contrast adrenal CT or chemical-shift adrenal MRI follow-up study. --Patient will need outpatient follow-up imaging of adrenal nodules, can be followed through his PCP. plan of care discussed with patient and his family in detail and at length all questions answered they are understanding, agreeable, comfortable with the plan of care Admission and Anticipated Discharge Date Admission Date: April 19, 2024 Subjective seen resting in bed, still having back pain no new weakness or numbness awaiting steroid injection procedure Review of Systems Review of Systems: all noted and negative except for above Physical Exam Physical Exam: General- oriented x 3, not in distress, speaks in sentences with no effort or accessory muscle use Eyes- anicteric Neck- no JVD Lungs- clear breath sounds bilaterally, no rales/wheezes Heart- normal rate, regular rhythm; no murmurs Abdomen- normal bowel sounds, nondistended, soft, nontender Extremities- no pretibial edema, no calf tenderness Neuro- alert, oriented x 3; no gross focal neurologic deficits Skin- warm & dry Results & Data Results & Data Vital Signs (Past 12 Hours) Vital Signs Temp Pulse Pulse Pulse Resp BP BP 04/20/24 15:24 36.4 C L 77 16 115/75 04/20/24 15:10 76 18 137/91 04/20/24 15:05 72 20 135/91 04/20/24 15:00 74 18 128/94 04/20/24 14:55 75 18 126/90 04/20/24 14:32 36.7 C 77 19 116/91 04/20/24 07:28 36.9 C 70 16 122/83 Pulse Ox O2 Del Method 04/20/24 15:24 93 Room Air 04/20/24 15:10 96 Room Air 04/20/24 15:05 97 Room Air 04/20/24 15:00 96 Room Air 04/20/24 14:55 97 Room Air 04/20/24 14:32 99 Room Air 04/20/24 07:28 93 Room Air all noted and reviewed including below
[2024-04-21 08:33] VITALS: BP 118/76; PULSE 88; RESP 16; TEMP 98.2; O2SAT 98
--- NOTE | 2024-04-21 10:00 | Pain Management Progress Note ---
Date of Service April 21, 2024 Assessment & Plan (1) Left low back pain: Chronicity: acute Sciatica presence: without sciatica Qualified Code(s): M54.50 - Low back pain, unspecified (2) Lumbar facet joint syndrome: (3) Herniation of intervertebral disc between L5 and S1: (4) Neural foraminal stenosis of lumbosacral spine: Plan Patient reports 100% pain relief. He is ready for discharge to home. He will be scheduled for a new patient appointment 04/23/24 at 9AM with the [facility] to become established with the office should the pain recur. Should the date and time not work for him, he is welcome to contact the office to reschedule. Admission and Anticipated Discharge Date Admission Date: April 19, 2024 Subjective Mr. Villela is status post left L4-L5 and L5-S1 intra-articular facet joint injection that was performed by Dr. Disla yesterday. Patient is reporting 100% pain relief and is very pleased with the results. He is able to ambulate around the room without any difficulty. He has not required the use of any pain medication since the injection. Pain is currently rated 0/10 and he is eager to be discharged to home. No radicular symptoms down the legs. No constitutional complaints or neurological symptoms. Case discussed with Dr. Magaly Disla Physical Exam Physical Exam: GENERAL: Speech and cognition is intact. Mood and affect is appropriate. Does not appear in acute distress. BACK: There is no midline, SI joint, or facet joint tenderness. There is no paraspinal, quadratus lumborum, piriformis, or gluteal tenderness or spasm. NEURO: Awake, alert, and oriented x 3. SKIN: No erythema, edema, or drainage of the injection sites. Band-aids were removed.
--- NOTE | 2024-04-21 11:07 | Discharge Summary ---
Discharge Summary Date of Service April 21, 2024 delayed entry date of service noted above Principal Dx & Hospital Course #1 = Principal Diagnosis (1) Herniation of intervertebral disc between L5 and S1: (2) Neural foraminal stenosis of lumbosacral spine: (3) Adrenal nodule: Plan (1) Herniation of intervertebral disc between L5 and S1: (2) Neural foraminal stenosis of lumbosacral spine: (3) Adrenal nodule: Plan per admitting service notes with addendum: Patient with intractable left sided lumbar/hip pain most likely due to foraminal stenosis of the L5-S1 herniated disc. Patient requires hospital level care for pain control and specialty consultation and additional imaging. Care for in the MedSurg unit. Scheduled Tylenol, Flexeril, Neurontin for pain control As needed oxycodone and IV Dilaudid for pain control MRI of the lumbar spine Orthospine consultation, Dr. Sanchez Will hold on any additional steroids at this time. Patient did not seem to find relief with steroid bort burst as an outpatient, his orthopedic spine surgery and told him to discontinue the steroids that he had been on. Therapy consultation 04/19 Dr. Sanchez evaluated the patient today Lumbar spine MRI: 1. Degenerative changes are noted above, most pronounced at L4-L5 with mild central spinal stenosis. 2. No focal disc extrusion or exiting nerve root impingement. continue Gabapentin trial, Flexeril no other symptoms 04/20 s/p Left L4-L5 and L5-S1 Intraarticular Lumbar Facet Injection under Fluoroscpy(Left) - Magaly Disla DO 04/21 patient reports back pain has resolved after injection continue Gabapentin TID, wean off accordingly Flexeril and Oxycodone PRN ff up with Pain management clinic Dr. Disla 04/23/24 Adrenal Nodules incidental finding on CT abdomen/pelvis: Indeterminant right adrenal nodule measures up to 1.8 cm. 5 mm left adrenal low-density nodule likely adenoma. In the absence of the prior study to document stability, ACR White Paper guidelines (marcella Hutchinson al. JACR 2017; 14(8):3174-4618) suggest the following. If there is no history of malignancy consider a follow-up low dose, non-contrast adrenal CT or chemical-shift adrenal MRI in 12 months. If there is a history of malignancy recommend a low dose, non-emergent, non-contrast adrenal CT or chemical-shift adrenal MRI follow-up study. --Patient will need outpatient follow-up imaging of adrenal nodules, can be followed through his PCP. Other abnormal CT abdomen/pelvis findings; Mild Cardiomegaly Mild atherosclerotic plaque in the aorta and iliac arteries --. Please refer to full report in the Ordered Studies section -- Further work up, management, and ff up as outpatient plan of care discussed with patient and his family in detail and at length all questions answered they are understanding, agreeable, comfortable with the plan of care Notes For Next Care Provider --Patient will need outpatient follow-up imaging of adrenal nodules Medication Changes From Visit Gabapentin PRN Flexeril, Oxycodone Admission HPI Per Admitting Provider Patient is a 54-year-old gentleman with known bulging disks in the lumbar spine. About 2 weeks ago started noticing increased amount of pain in the left hip. Describes a sharp throbbing intractable pain. Patient is already follows with Dr. Sanchez. Tried a Medrol Dosepak that did not seem to offer him much relief. Patient followed up with his PCP earlier this week and started another burst of steroids. He got no relief with this. Dr. Sanchez trialed him on some Flexeril. Flexeril did not seem to help much at all either. The pain in the hip really exacerbated on . He tried to work on Saturday and the pain just got excruciating to the point where he sought attention in the emergency room today. In the emergency room CT of the lumbar spine shows increased evidence of L5-S1 disc herniation with right foraminal stenosis. These findings were discussed with Dr. Sanchez in the emergency room. It was recommended the patient be admitted for pain control and further imaging and possible surgical intervention. Time of my evaluation the patient's pain had been in had improved with Dilaudid. He reports that his pain is really in the left hip despite findings of more significant stenosis on the right on imaging. Also on imaging of the abdomen in the ED showed some indeterminate right adrenal nodules that based on their size recommend follow-up imaging within the next 12 months. Otherwise the patient denies any real significant medical history. Been eating and drinking okay. Bowels and bladder have been working normally. No chest pain or shortness of breath. No fevers or cough or cold symptoms. Admission Exam Per Admitting Provider Constitutional: Alert, moderate distress due to pain, nontoxic HEENT: Mucous membranes moist. Sclera clear Neck: Soft, no adenopathy Lungs: Clear to auscultation, decreased, no wheezes rales or rhonchi CV: S1-S2, regular Abdomen: Soft, nontender, nondistended Extremities: No significant edema Musculoskeletal: Unable to reproduce significant tenderness to palpation along his left hip, some lumbar paravertebral musculature bogginess and tenderness, Neuro: No focal deficits, negative straight leg raising, strength in lower extremity intact, sensation intact Psych: Cooperative, normal mood Discharge Exam General- oriented x 3, not in distress, speaks in sentences with no effort or accessory muscle use Eyes- anicteric Neck- no JVD Lungs- clear breath sounds bilaterally, no rales/wheezes Heart- normal rate, regular rhythm; no murmurs Abdomen- normal bowel sounds, nondistended, soft, nontender Extremities- no pretibial edema, no calf tenderness Neuro- alert, oriented x 3; no gross focal neurologic deficits Skin- warm & dry Updated Medication List Medication Instructions Recorded Confirmed Type cyclobenzaprine 10 mg tablet 10 mg PO TID PRN MUSCLE SPASM #20 04/21/24 Rx tabs gabapentin 300 mg capsule 300 mg PO TID 30 days #90 caps 04/21/24 Rx oxycodone 5 mg tablet 10 mg (2 x 5 mg) PO Q4H PRN 04/21/24 Rx MODERATE TO SEVERE PAIN #12 tabs Hospital Stay Data Consultations 04/18/24 18:39 ED Decision to Admit Stat 04/18/24 19:09 Consult Orthopedic Spine Surgery Routine 04/20/24 09:57 Consult Pain Management Routine Procedures Performed Operation Date: 04/20/24 10:40 Actual Procedures p Left L4-L5 and L5-S1 Intraarticular Lumbar Facet Injection under Fluoroscpy(Left) - Magaly Disla DO Diagnostic Imagining Performed 04/18/24 14:42 CT abd pelvis IV con only Stat EXAM: CT Abdomen and Pelvis With Intravenous Contrast INDICATION: Low back and flank pain. TECHNIQUE: Axial computed tomography images of the abdomen and pelvis with intravenous contrast. Sagittal and coronal reformatted images were created and reviewed. This CT exam was performed using one or more of the following dose reduction techniques: automated exposure control, adjustment of the mA and/or kV according to patient size, and/or use of iterative reconstruction technique. CONTRAST: 93ml of Optiray 320 was administered intravenously. COMPARISON: No relevant prior studies available. FINDINGS: Limitations: None. Lung bases: No abnormality noted. Pleural space: No visualized pleural effusion or pneumothorax. Heart: Mild cardiomegaly. No basilar pericardial effusion. Mediastinum: No abnormality noted. ABDOMEN: Liver: No abnormality noted. Gallbladder and bile ducts: No calcified stones or surrounding fluid. Pancreas: Homogeneous enhancement. No mass, inflammation or ductal dilation. Spleen: No significant abnormality noted. Adrenals: 1.8 x 1.3 x 0.9 cm low-density right adrenal nodule. Density measurements slightly greater than expected for adenoma. There is a 5 mm round hypodense nodule in the lateral limb of the left adrenal gland. It is too small to characterize likely benign. Kidneys and ureters: Tiny hypodensity in the lower pole of the left kidney too small to characterize likely cyst. Appearance benign. No further assessment required. The kidneys otherwise appear normal. No stones or hydronephrosis. Stomach and bowel: Scattered left colonic diverticula noted. No diverticulitis. No intestinal obstruction. No segmental thickening. PELVIS: Appendix: Well seen and appears normal. Bladder: No filling defects to suggest mass or large stone. No inflammation. Reproductive: No abnormalities noted. ABDOMEN and PELVIS: Intraperitoneal space: No free air. No significant fluid collection. Bones/joints: Degenerative changes noted throughout the spine. No acute osseous abnormality seen. Degenerative changes present in the spine. No acute osseous abnormality. Soft tissues: There is a right paramedian supraumbilical fat-containing hernia with a 7 mm neck. Vasculature: Mild atherosclerotic plaque in the aorta and iliac arteries. No aneurysm or dissection. Lymph nodes: No pathologically enlarged lymph nodes. IMPRESSION: 1. No acute abnormality in the abdomen or pelvis. 2. Indeterminant right adrenal nodule measures up to 1.8 cm. 5 mm left adrenal low-density nodule likely adenoma. In the absence of the prior study to document stability, ACR White Paper guidelines (Evangelina et al. JACR 2017; 14(8):3987-1835) suggest the following. If there is no history of malignancy consider a follow-up low dose, non-contrast adrenal CT or chemical-shift adrenal MRI in 12 months. If there is a history of malignancy recommend a low dose, non-emergent, non-contrast adrenal CT or chemical-shift adrenal MRI follow-up study. 3. Degenerative lumbar disc disease. See separately dictated CT lumbar spine report from the same day. ACT 112: Negative or not required by law. CT lumbar spine w con Stat 04/19/24 19:09 MR lumbar spine wo/w con Routine 04/20/24 [place] fluoro for pain procedure Routine Pending Results Patient Have Any Pending Studies at Discharge: No Discharge Instructions Given to Patient (Per Discharging Provider) PLEASE REFER TO YOUR NEW MEDICATION LIST AND FOLLOW INSTRUCTIONS CAREFULLY. YOUR NEW MEDICATIONS INCLUDE: Gabapentin-for nerve pain Flexeril-as needed for muscle spasms Oxycodone-as needed for severe pain PLEASE CALL YOUR PRIMARY CARE PHYSICIAN OR RETURN TO THE ER IF WITH WORSENING OF SYMPTOMS, INCLUDING Back pain, leg pain, weakness or numbness, problems with walking, etc. FOLLOW UP WITH PRIMARY CARE PHYSICIAN IN 1 WEEK. The clinic will be calling you soon for the appointment. Please follow-up with Dr. aMgaly Disla on as scheduled. Total Time Total Time Spent Total Time Spent (In Minutes): 55 minutes
== END 2024-04-21 11:31 | disposition home or self-care (01) | DRG 552 ==
LOC: ED 13:28 → 3N 13:28 → SUATTDRO 19:09 → 3N 21:36 → SUATTDRO 04-19 14:17 → 3E 04-20 05:56
DX: M47.896 Other spondylosis, lumbar region; E86.0 Dehydration; E27.8 Other specified disorders of adrenal gland; M54.17 Radiculopathy, lumbosacral region; M51.27 Other intervertebral disc displacement, lumbosacral region; M48.07 Spinal stenosis, lumbosacral region; R26.9 Unspecified abnormalities of gait and mobility